=== PATIENT | female | born 1960 | race Caucasian/White ===

== ENCOUNTER → 2016-12-06 | Outpatient (CLI) | payer OTHER ==
--- NOTE | 2016-12-13 17:55 | MA ---
Screening Digital Mammogram With iCAD Analysis Clinical Indications: Routine screening. The patient has had right breast cancer treated with lumpect sixto. Technique: Standard cephalocaudal projections are obtained. Digital breast tomosynthesis was performe d in the MLO projection with reconstruction at 1.0 mm slice thickness and composite MLO views reconst ructed. A skin marker is placed on lumpectomy scar in the outer posterior right breast. This examinat ion is processed by the iCAD computer aided detection system. Comparison: October 2013, March 2013. Breast density: Type C: Heterogeneously dense. Findings: CAD was reviewed. Architectural change and dystrophic calcifications are noted at the lumpe ctomy site in the upper outer posterior right breast. No masses, suspicious calcifications or seconda ry signs of malignancy are seen. There has been no significant change in the appearance of either edil ast. Impression: Benign post lumpectomy mammography, BI-RADS 2. Recommendation: Routine mammographic screening in one year as long as physical examination is negativ e in this patient with heterogeneously dense breast parenchyma. [facility] will send a result letter to the patient. Negative mammography should not preclude additional workup of a clinically suspicious finding. The patient's information is entered into a reminder system with a target due date for her next mammo gram.
== END ==
LOC: FIMAGING 11:32
DX: Z12.31 Encounter for screening mammogram for malignant neoplasm of breast (principal); Z85.3 Personal history of malignant neoplasm of breast
CPT/HCPCS: G0202

== ENCOUNTER → 2017-12-19 | Outpatient (CLI) | payer OTHER | LOC: FIMAGING 12:38 | PROVIDERS: ATTEND Family Medicine | DX: Z12.31 Encounter for screening mammogram for malignant neoplasm of breast (principal); Z85.3 Personal history of malignant neoplasm of breast ==

== ENCOUNTER → 2017-12-29 | Outpatient (CLI) | payer OTHER | LOC: FIMAGING 13:26 | PROVIDERS: ATTEND Family Medicine | DX: R92.8 Other abnormal and inconclusive findings on diagnostic imaging of breast (principal) ==

== ENCOUNTER → 2018-01-15 | Outpatient (CLI) | payer OTHER ==
[~2018-01-15] MED LIST: BUPIVACAINE 0.5% 10 ML SDV ONE; LIDOCAINE 1% 300 MG/30 ML SDV ONE; THROMBIN (BOVINE) 5,000 UNIT VIAL TP ONE
== END ==
LOC: FIMAGING 07:44
PROVIDERS: ATTEND Family Medicine
PROC: 0HBT3ZX Excision of Right Breast, Percutaneous Approach, Diagnostic (ICD-10-PCS; principal; 2018-01-15)
DX: C50.411 Malignant neoplasm of upper-outer quadrant of right female breast (principal)

== ENCOUNTER 2018-02-23 08:10 | Observation (INO) | payer OTHER ==
[2018-02-23] MEDS ORDERED: LR 1,000 ML IV ONE (08:22)
--- NOTE | 2018-02-23 10:00 | PDANEPAE ---
ANE History of Present Illness 57 year old female for bilateral mastectomy with reconstruction. ANE Past Medical History - Cardiovascular History Hx Hypertension: No Hx Arrhythmias: No Hx Chest Pain: No Hx Coronary Artery / Peripheral Vascular Disease: No Hx CHF / Valvular Disease: No Hx Palpitations: No - Pulmonary History Hx COPD: No Hx Asthma/Reactive Airway Disease: No Hx Recent Upper Respiratory Infection: No Hx Oxygen in Use at Home: No Hx Sleep Apnea: No Sleep Apnea Screening Result - Last Documented: Negative - Neurologic History Hx Cerebrovascular Accident: No Hx Seizures: No Hx Dementia: No Neurologic History Comment: migraine H/A's. 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 - Endocrine History Hx Diabetes: No Hypothyroid: No Hyperthyroid: No Obesity: no - Renal History Hx Renal Disorders: No - Liver History Hx Hepatic Disorders: No - Neurological & Psychiatric Hx Hx Neurological and Psychiatric Disorders: Yes Neurological / Psychiatric History Comment: clinical depression; H/A posterior C3,4,5 neck pain - Cancer History Hx Cancer: Yes Cancer History Comment: R breast - Congenital Disorder History Hx Congenital Disorders: No - GI History Hx Gastrointestinal Disorders: Yes Gastrointestinal History Comment: lansoprazole protects stomach from Venlafaxine - Other Health History Other Health History: none - Chronic Pain History Chronic Pain: No - Surgical History Prior Surgeries: R breast surgery. R breast lumpectomies x2. pilonidal cyst excision. wisdom teeth extraction (oral surgeon's office) ANE Review of Systems Review of Systems: - Exercise capacity Exercise capacity: >=4 METS METS (RN): 4 METS ANE Patient History - Allergies Allergies/Adverse Reactions: amoxicillin Allergy (Verified 02/21/18 15:34) Rash ciprofloxacin [From Cipro] Allergy (Verified 02/21/18 15:34) "kidney failure" Sulfa (Sulfonamide Antibiotics) Allergy (Verified 02/21/18 15:34) Rash - Home Medications Home medications: home medication list seen and reviewed Home Medications: RX: Vitamin B Complex [B Complex] 1 each PO DAILY 10/29/16 [Last Taken 02/23/18] Brexpiprazole [Rexulti 1 MG (*)] 1 mg PO DAILY 02/19/18 [Last Taken 02/23/18] Eszopiclone [Lunesta] 2 mg PO HS 02/19/18 [Last Taken 02/23/18] Naproxen Sodium [Aleve 220 MG (*)] 220 mg PO DAILY PRN 02/19/18 [Last Taken 10:00] SUMAtriptan [Imitrex 50 MG (*)] 100 mg PO DAILY PRN 02/19/18 [Last Taken Unknown ] Venlafaxine Xr [Effexor Xr 75MG (*)] 225 mg PO DAILY 02/19/18 [Last Taken ] - NPO status NPO Status: no food or drink >8 hours NPO Since - Liquids (Date): 02/22/18 NPO Since - Liquids (Time): 23:30 NPO Since - Solids (Date): 02/22/18 NPO Since - Solids (Time): 19:30 - Anes Hx Anes Hx: no prior problems - Smoking Hx Smoking Status: Never smoked Marijuana use: No - Alcohol Use Alcohol Use: Occasionally - Family Anes Hx Family Anes Hx: neg - N/A ANE Labs/Vital Signs - Vital Signs Vital Signs: reviewed preoperatively; see RN documention for details Blood Pressure: 139/101 Heart Rate: 109 Respiratory Rate: 18 O2 Sat (%): 90 Height: 167.64 cm Weight: 81.647 kg ANE Physical Exam - Airway Mallampati Score: Class 3 Mouth exam: small mouth opening Mouth image: 1 - veneers / capped - Pulmonary Pulmonary: no respiratory distress - Cardiovascular Cardiovascular: regular rate and rhythym ANE Anesthesia Plan Anesthesia Plan: general endotracheal anesthesia Total IV Anesthesia: No
[2018-02-23] MEDS ORDERED: BACITRACIN ZINC 14.2 GM OINTTUBE TP ONE (10:03)
[2018-02-23] MEDS ORDERED: GENTAMICIN SULFATE 80 MG/2 ML VIAL ONE (10:03)
[2018-02-23] MEDS ORDERED: BUPIVACAINE 0.25% 30 ML SDV ONE (10:03)
[2018-02-23] MEDS ORDERED: BACITRACIN 50,000 UNITS/10 ML SYR IRR ONE (10:04)
[2018-02-23] MEDS ORDERED: ceFAZolin 2 GM/SWFI 2 GM/20 ML SYR IVP ONE (10:04)
[2018-02-23] MEDS ORDERED: ceFAZolin 1 GM/5 ML SYR ONE (10:04)
--- NOTE | 2018-02-23 10:04 | PDHPUP ---
History & Physical Update H&P update statement: This history and physical update is based on an assessment of the patient which was completed after admission or registration (within 24 hours), but prior to the surgery/procedure. H&P update: H&P reviewed & patient examined, no change in patient's condition since H&P completed
[2018-02-23] MEDS ORDERED: MIDAZOLAM 2 MG/2 ML VIAL IVP ONE (10:13)
[2018-02-23] MEDS ORDERED: fentaNYL 100 MCG/2 ML INJ ONE ×3 (10:30→14:40)
[2018-02-23] MEDS ORDERED: PROPOFOL/EMULSION 500 MG/50 ML BOTTLE IV ONE ×2 (10:30→12:28)
[2018-02-23] MEDS ORDERED: SUGAMMADEX SODIUM 200 MG/2 ML VIAL IVP ONE (10:33)
[2018-02-23] MEDS ORDERED: DEXAMETHASONE 4 MG/ML VIAL ONE (10:33)
[2018-02-23] MEDS ORDERED: ONDANSETRON 4 MG/2 ML VIAL ONE (10:33)
[2018-02-23] MEDS ORDERED: ROCURONIUM 50 MG/5 ML VIAL ONE (10:43)
[2018-02-23] MEDS ORDERED: LIDOCAINE 2% 5 ML SDV ONE (10:43)
[2018-02-23] MEDS ORDERED: KETOROLAC 30 MG/1 ML SDV ONE (11:42)
[2018-02-23] MEDS ORDERED: PROMETHAZINE HCL 25 MG/ML INJ IVP PRN ×2 (11:59→13:15)
[2018-02-23] MEDS ORDERED: TEMAZEPAM 15 MG CAP PO PRN (11:59)
[2018-02-23] MEDS ORDERED: ONDANSETRON 4 MG/2 ML VIAL IVP PRN ×2 (11:59→13:15)
[2018-02-23] MEDS ORDERED: PHENYLEPHRINE HCL 100 MCG/ML SYR ONE (12:07)
[2018-02-23] MEDS ORDERED: NALOXONE HCL 0.4 MG/ML INJ IVP PRN (13:15)
[2018-02-23] MEDS ORDERED: LR 500 ML IV PRN (13:15)
[2018-02-23] MEDS ORDERED: PHENYLEPHRINE HCL 100 MCG/ML SYR IVP PRN (13:15)
[2018-02-23] MEDS ORDERED: epHEDrine SULFATE 10 MG/ML SYR IVP PRN (13:15)
[2018-02-23] MEDS ORDERED: HYDROmorphone HCL/NS 0.5 MG/ML SYR IVP PRN ×2 (13:15→17:23)
[2018-02-23] MEDS ORDERED: ceFAZolin 2 GM/DEXTROSE 100 ML IV SCH (14:00)
[2018-02-23] MEDS: fentaNYL 100 MCG/2 ML INJ IVP PRN ×3 (14:42→14:58)
[2018-02-23] MEDS ORDERED: HYDROCODONE/APAP 5/325 TAB ONE (14:57)
--- NOTE | 2018-02-23 14:57 | GOP ---
[f rep st] OPERATIVE REPORT DATE OF OPERATION: 02/23/2018 SURGEON: Delmi Ellison Jr., MD BOILER SETTER: Darrius Lobo SA, by surgeon request (skilled surgical tech was necessary due to th e technical complexity of the case and desire to minimize patient anesthesia time). ANESTHESIA: General inhalational. PREOPERATIVE DIAGNOSIS: Recurrent right breast cancer. POSTOPERATIVE DIAGNOSIS: Recurrent right breast cancer. PROCEDURE PERFORMED: Immediate bilateral breast reconstruction utilizing tissue expanders and human dermal allograft FINDINGS: ESTIMATED BLOOD LOSS: During reconstruction was 15 mL. DESCRIPTION OF PROCEDURE: She was taken to the operating room. After adequate inhalational general anesthesia was induced, she underwent a bilateral mastectomy by Dr. Elias Downey. This was an uncompl icated procedure and at the end of her procedure, the patient was redraped with fresh towels, fresh i nstrumentation, electrocautery, and suction was utilized. The procedure began by rinsing the pockets multiple times with normal saline to remove any blood and bits of tissue remaining from the mastecto my. An Qriouslyan 133 FX, 550 mL tissue organ builder had been previously prepared by filling with 400 mL of air , rinsing in triple antibiotic saline, and wrapping the tissue expanders completely with AlloDerm odalys llular dermis graft. The AlloDerm had been previously rinsed and soaked in triple antibiotic saline and trimmed to precisely fit the contour of the organ builder. The organ builder was then placed into the appr opriate pocket bilaterally and sutured into the correct position on the chest wall using 2-0 PDS sutu re. A small right internal Dom flap was tacked superiorly to provide additional soft tissue coverag e, given the size discrepancy of the breast to begin with from the previous surgery. The superior sk in flap was then tacked down to the anterior aspect of the AlloDerm using 2-0 Vicryl suture. 15 round SHARLENE drains were placed along with 15 mL of 0.25% plain Marcaine. The lateral mastectomy pock et was closed using 2-0 Vicryl suture. The pockets were rinsed multiple times with triple antibiotic saline solution. Hemostasis, again, assured. The skin edges were then closed using everting deep d ermal 3-0 Monocryl suture and further everted using surgical lacey. I elected to remove 50 mL of a ir from the right tissue organ builder to minimize tension on the incision. The drains were placed to bul b suction. She had bacitracin, Xeroform, 4 x 4s applied to her incision. She had a compressive bra placed in the operating room. She was extubated in the OR, taken to recovery room, awake, in stable condition. SURGEON: Delmi Ellison MD. TISSUE EXPANDERS UTILIZED: Allergan 133FX, 550 mL tissue expanders. The left was filled to 400. Th e right was filled to 350 mL with air. DRAIN: 2 SHARLENE drains were placed. COMPLICATIONS: No complications. INDICATIONS FOR OPERATION: Melody is a 57-year-old white female who underwent a right-sided lumpectom y with radiation therapy many years ago for breast cancer. She developed recurrent cancer in the rig ht breast and elected to undergo a completion right mastectomy with contralateral prophylactic left m astectomy. She was deemed a good candidate for tissue organ builder reconstruction. Was seen in the oper ating room for that purpose. Clinical course: After risks and benefits of procedure explained, highl ighting bleeding, infection, need for tissue organ builder removal, damage to vessels or nerves or underly ing muscle, contour irregularities, and need for additional procedures. Formal operative consent was obtained. /[id number]/MODL
[2018-02-23] MEDS: HYDROCODONE/APAP 5/325 TAB PO PRN ×2 (15:00→23:02)
--- NOTE | 2018-02-23 15:07 | POSTANESTH ---
Post Anesthetic Evaluation Cardiovascular Status: Normal, Stable, Similar to Pre-Op Cond Respiratory Status: Normal, Stable, Similar to Pre-op Cond. Level of Consciousness/Mental Status: Can Participate in Eval, Alert and Oriented Pain Control: Adequate, Prn Tx Ordered Nausea/Vomiting Control: Adequate, Prn Tx Ordered Complications Possibly Related to Anesthesia: None Noted
[2018-02-23] MEDS: ALPRAZolam 0.25 MG TAB PO SCH ×2 (16:52→23:02)
[2018-02-23] MEDS: KETOROLAC 15 MG/1 ML SDV IVP SCH (18:30)
--- NOTE | 2018-02-23 18:38 | GOP ---
[f rep st] OPERATIVE REPORT DATE OF OPERATION: 02/23/2018 SURGEON: Elias Downey MD PLASTIC SURGEON: Delmi Ellison MD TRACKMOBILE OPERATOR: Tamika Beavers PA-C ANESTHESIA: General ANESTHESIOLOGIST: Gene Rizo MD PREOPERATIVE DIAGNOSIS: 1. Right breast carcinoma. 2. Personal history of right breast carcinoma. POSTOPERATIVE DIAGNOSIS: 1. Right breast carcinoma. 2. Personal history of right breast carcinoma. PROCEDURE PERFORMED: Bilateral simple mastectomy with right axillary sentinel node biopsy, with immediate tissue architecture technician reconstruction. FINDINGS: See below. INDICATIONS: 57-year-old female with a remote history of right breast DCIS. She underwent a prior right lumpectomy with partial breast irradiation. She has developed a new invasive ductal carcinoma within the ipsilateral breast. Preoperative imaging shows no other multifocal or contralateral lesions. She is undergoing a right mastectomy with axillary sentinel node sampling, as well as prophylactic left mastectomy at this time. Risks and benefits were explained of bleeding, infection, tumor recurrence, need for additional postoperative therapy, skin flap necrosis, arm edema, nerve injury, failure to identify sentinel lymph node, as well as others. All questions were entertained. She desires to proceed. A surgical aides teacher is standard and necessary and customary for the safe performance of this procedure. DESCRIPTION OF PROCEDURE: General anesthesia was induced upon returning from right breast lymphoscintigraphy. Bilateral breasts were elliptically incised, incorporating the nipple-areolar complexes. The right breast had 2 prior areas of treatment which were tethered to the skin. Overlying skin was completely excised overlying these areas of interest. The skin flaps were created to the level of the clavicles, sternum, inframammary fold as well as latissimus dorsi muscle laterally. Bilateral breasts were peeled from medial to lateral, incorporating the pectoralis major fascia. The right axilla was opened. There was no suspicious axillary adenopathy. Multiple small peppered lymph nodes were identified and excised. The sentinel uptake was noted to be marginal throughout; all areas of subtle uptake were included with the specimen sampling measuring approximately 40-50 units on the gamma counter. Upon completion, the background activity was all negligible. Satisfactory hemostasis was assured throughout the right axilla as well as the bilateral breast cavities. Care of the case was turned to Dr. Ellison for tissue architecture technician placement and wound closure. /[id number]/MODL MTDD
[2018-02-23] MEDS: ceFAZolin 2 GM/SWFI 2 GM/20 ML SYR IVP SCH (18:49)
[2018-02-24] MEDS: KETOROLAC 15 MG/1 ML SDV IVP SCH ×2 (00:07→06:07)
[2018-02-24] MEDS: ceFAZolin 2 GM/SWFI 2 GM/20 ML SYR IVP SCH ×2 (01:51→08:56)
[2018-02-24] MEDS: HYDROCODONE/APAP 5/325 TAB PO PRN ×2 (04:45→08:53)
--- NOTE | 2018-02-24 08:21 | SOAPPROG ---
SOAP Progress Note Assessment/Plan: Assessment:no overnight complaints. pain well controlled. afebrile. comfortable. flaps pink. drains serosang. doing very well. home later today. postop hypoxia - anticipate improvement with ambulation/pulm toilet. f/u as scheduled - has rx and instructions already. Plan: 02/24/18 08:18 Objective: Vital Signs Temp Pulse Resp BP Pulse Ox 36.8 C 92 16 139/68 H 94 02/24/18 04:00 02/24/18 04:00 02/24/18 04:00 02/24/18 04:00 02/24/18 04:00 02/23/18 02/24/18 02/25/18 05:59 05:59 05:59 Intake Total 3301 Output Total 650 380 Balance 2651 -380 ICD10 Worksheet Patient Problems: Problems Problem Status Onset Alcoholic intoxication Acute Pneumonia Acute Suicidal ideation Acute
[2018-02-24] MEDS: ALPRAZolam 0.25 MG TAB PO SCH (08:41)
[2018-02-24] MEDS ORDERED: PANTOPRAZOLE SODIUM 40 MG TAB PO SCH (09:00)
[2018-02-24] MEDS ORDERED: VENLAFAXINE XR 75 MG CAP PO SCH (09:00)
[2018-02-24] MEDS ORDERED: LANSOPRAZOLE SUSP 3 MG/ML UDSYR (Peds) PO SCH (09:00)
[2018-02-24 11:07] VITALS: BP 138/76
== END 2018-02-24 12:06 | disposition home or self-care (01) ==
LOC: F3N 08:10 → INTOOBSV 08:10 → F1N 15:12
PROVIDERS: ADMIT Surgery; ATTEND Surgery
DX: C50.611 Malignant neoplasm of axillary tail of right female breast (principal); F41.8 Other specified anxiety disorders; G43.909 Migraine, unspecified, not intractable, without status migrainosus; Z17.0 Estrogen receptor positive status [ER+]
CPT/HCPCS: A9520; G0378; J0690; J1100; J1580; J1885; J2250; J2370; J2405; J2704; J3010; Q4116

== ENCOUNTER → 2018-05-14 | Outpatient (CLI) | payer OTHER | LOC: FIMAGING 13:52 | PROVIDERS: ATTEND Internal Medicine Hematology & Oncology | DX: Z13.820 Encounter for screening for osteoporosis (principal); M85.89 Other specified disorders of bone density and structure, multiple sites; Z78.0 Asymptomatic menopausal state ==

== ENCOUNTER 2018-09-17 12:37 | Day surgery (SDC) | payer OTHER ==
[2018-09-17] MEDS ORDERED: MIDAZOLAM 2 MG/2 ML VIAL IVP ONE (14:06)
--- NOTE | 2018-09-17 14:06 | PDANEPAE ---
ANE Past Medical History - Cardiovascular History Hx Hypertension: No Hx Arrhythmias: No Hx Chest Pain: No Hx Coronary Artery / Peripheral Vascular Disease: No Hx CHF / Valvular Disease: No Hx Palpitations: No - Pulmonary History Hx COPD: No Hx Asthma/Reactive Airway Disease: No Hx Recent Upper Respiratory Infection: No Hx Oxygen in Use at Home: No Hx Sleep Apnea: No Sleep Apnea Screening Result - Last Documented: Negative - Neurologic History Hx Cerebrovascular Accident: No Hx Seizures: No Hx Dementia: No Neurologic History Comment: migraine H/A's. 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 - Endocrine History Hx Diabetes: No - Renal History Hx Renal Disorders: No - Liver History Hx Hepatic Disorders: No - Neurological & Psychiatric Hx Hx Neurological and Psychiatric Disorders: Yes Neurological / Psychiatric History Comment: clinical depression - Cancer History Hx Cancer: Yes Cancer History Comment: R breast - Congenital Disorder History Hx Congenital Disorders: No - GI History Hx Gastrointestinal Disorders: Yes Gastrointestinal History Comment: lansoprazole protects stomach from Venlafaxine - Other Health History Other Health History: none - Chronic Pain History Chronic Pain: No - Surgical History Prior Surgeries: 05/2018 breast exchange at surgery center. R breast surgery. R breast lumpectomies x2. pilonidal cyst excision. wisdom teeth extraction ( oral surgeon's office). bilat mastectomy ANE Review of Systems Review of Systems: - Exercise capacity METS (RN): 4 METS ANE Patient History - Allergies Allergies/Adverse Reactions: amoxicillin Allergy (Verified 09/11/18 17:13) Rash cephalexin [From Keflex] Allergy (Verified 09/11/18 17:13) Rash ciprofloxacin [From Cipro] Allergy (Verified 09/11/18 17:13) "kidney failure" Sulfa (Sulfonamide Antibiotics) Allergy (Verified 09/11/18 17:13) Rash - Home Medications Home Medications: Brexpiprazole [Rexulti 1 MG (*)] 02/19/18 [Last Taken 09/16/18] Eszopiclone [Lunesta] 02/19/18 [Last Taken 09/16/18] SUMAtriptan [Imitrex 50 MG (*)] PRN 02/19/18 [Last Taken 03/21/18] Venlafaxine Xr [Effexor Xr 75MG (*)] 02/19/18 [Last Taken 09/16/18] Lansoprazole [Prevacid] 05/30/18 [Last Taken 09/16/18] Herbals/Supplements -Info Only 09/11/18 [Last Taken 09/11/18] Tamoxifen Citrate 09/11/18 [Last Taken 09/16/18] - NPO status NPO Since - Liquids (Date): 09/17/18 NPO Since - Liquids (Time): 11:00 NPO Since - Solids (Date): 09/16/18 NPO Since - Solids (Time): 19:00 - Smoking Hx Smoking Status: Former smoker - Family Anes Hx Family Hx Anesthesia Complications: none ANE Labs/Vital Signs - Vital Signs Blood Pressure: 153/99 Heart Rate: 102 Respiratory Rate: 20 O2 Sat (%): 95 Height: 167.64 cm Weight: 79.379 kg ANE Physical Exam - Airway Neck exam: FROM Mallampati Score: Class 2 Mouth exam: normal dental/mouth exam - Pulmonary Pulmonary: no respiratory distress - Cardiovascular Cardiovascular: regular rate and rhythym - ASA Status ASA Status: II ANE Anesthesia Plan Total IV Anesthesia: Yes
--- NOTE | 2018-09-17 14:07 | PDGENHP ---
History & Physical History of Present Illness: 58 year old female presents for evaluation of a gastric subepithelial lesion found on EGD on 07/30/18. Pertinent Past, Social, Family History: PMHx; breast ca, osteoporosis, iron def anemi. PSurgHx; b/l mastect. Relevant Physical Exam: HEENT: anicteric. CV: rrr + s1s2. Lungs: CTAB. Abd: soft, nt, + bs. No g/r Cardiorespiratory Assessment: ASA 2
[2018-09-17] MEDS ORDERED: INDOMETHACIN 50 MG SUPP PR PRN (14:08)
[2018-09-17] MEDS ORDERED: fentaNYL 100 MCG/2 ML INJ ONE (14:09)
[2018-09-17] MEDS ORDERED: PROPOFOL/EMULSION 500 MG/50 ML BOTTLE IV ONE ×2 (14:09→14:46)
[2018-09-17] MEDS ORDERED: NS 500 ML IV SCH (14:15)
[2018-09-17] MEDS ORDERED: MIDAZOLAM 2 MG/2 ML VIAL ONE (14:17)
[2018-09-17] MEDS ORDERED: fentaNYL 100 MCG/2 ML INJ IVP PRN (14:29)
[2018-09-17] MEDS ORDERED: ONDANSETRON 4 MG/2 ML VIAL IVP PRN (14:29)
[2018-09-17] MEDS ORDERED: ALBUTEROL 3 ML DEYVIAL IH PRN (14:29)
[2018-09-17] MEDS ORDERED: NALOXONE HCL 0.4 MG/ML INJ IVP PRN (14:29)
[2018-09-17] MEDS ORDERED: LABETALOL HCL 5 MG/ML 20 ML MDV ONE (14:37)
--- NOTE | 2018-09-17 15:24 | POSTANESTH ---
Post Anesthetic Evaluation Cardiovascular Status: Similar to Pre-Op Cond Respiratory Status: Similar to Pre-op Cond. Level of Consciousness/Mental Status: Mildly Sleepy, Arousable Pain Control: Adequate, Prn Tx Ordered Nausea/Vomiting Control: Adequate, Prn Tx Ordered Complications Possibly Related to Anesthesia: None Noted
--- NOTE | 2018-09-17 15:42 | GIREPORT ---
[facility] Surgical Services - Endoscopy Department Patient Name: Melody Lacey Procedure Date: 09/17/2018 2:22 PM Patient Type: Outpatient Attending / ER Physician: Adriel Pickett MD Procedure: Upper EUS Indications: Submucosal tumor versus extrinsic mass found on endoscopy Patient Profile: 58 year old female presents for evaluation of a gastric subepithelial l esion Providers: Adriel Pickett MD Medicines: Monitored Anesthesia Care Complications: No immediate complications. Estimated blood loss: Minimal. Description of Procedure: After obtaining informed consent, the endoscope was passed under direct vision. Throughout the procedure, the patient's blood pressure, pulse, and oxygen saturations were monitored continuously. The Endosonoscope was introduced through the mouth, and advanced to the second part of duoden um. The Endoscope was introduced through the mouth, and advanced to the sec ond part of duodenum. The upper EUS was accomplished without difficulty. Th e esophagus, stomach, and duodenum were visualized endosonographically. T he patient tolerated the procedure well. Findings: Endoscopic Finding : The Z-line was irregular with tongues of columnar appearing epithelium extending about 1.5cms into the esophagus. Short segment Barretts? Biop sies were taken with a cold forceps for histology. The GE junction was locat ed at 33cms from the gums. A single large subepithelial lesion was found in the gastric body, ante rior wall, lesser curvature. It was located at 43cms from the gums. 10cc of Tiarra Ink was injected around the lesion. See EUS section for further characterization. A hiatal hernia was present. Multiple small sessile polyps were found on the greater curvature of th e stomach. Biopsies were taken with a cold forceps for histology. Diffuse moderately erythematous mucosa was found in the entire examined stomach. Biopsies were taken with a cold forceps for histology. The examined duodenum was normal. This was biopsied on previous EGD. A single large subepithelial lesion was noted. was found in the gastric body. It was hypoechoic and measured 4 x 2.5cms. Could not determine wh at wall layer it originated from. Fine needle aspiration for cytology was performed. Color Doppler imaging was utilized prior to needle puncture to confirm a lack of significant vascular structures within the needle pat h. One pass was made with the 25 gauge needle using a transgastric approac h. A stylet was used. A supervisor metal placing was present and performed a preliminary cytologic examination. Fine needle biopsy was performed. Color Doppler imaging was utilized prior to needle puncture to confirm a lack of significant vascular structures within the needle path. Three passes we re made with the 22 gauge ultrasound biopsy needle using a transgastric approach. A visible core of tissue was obtained. Touch preps were perfo rmed. Endosonographic Finding : There was no sign of significant endosonographic abnormality in the com mon bile duct. The maximum diameter of the duct was 3 mm. There was no sign of significant endosonographic abnormality in the visualized portion of the liver. No masses were identified. No lymphadenopathy seen. Pancreatic parenchymal abnormalities were noted in the entire pancreas. These consisted of hyperechoic foci. The pancreatic duct had a prominently branched endosonographic appearan ce and had hyperechoic rascon in the entire pancreas. Estimated Blood Loss: Estimated blood loss was minimal. Post Op Diagnosis: - Z-line irregular. Biopsied. Barretts? - Hiatal hernia. - Multiple gastric polyps. Biopsied. - Erythematous mucosa in the stomach. Biopsied. - Normal examined duodenum. - A single papule (nodule) found in the stomach. Fine needle aspiration performed. Fine needle biopsy performed. Tiarra Ink injected around the lesion. - There was no sign of significant pathology in the common bile duct. - There was no evidence of significant pathology in the visualized port ion of the liver. - Pancreatic parenchymal abnormalities consisting of hyperechoic foci w ere noted in the entire pancreas. - The pancreatic duct had a prominently branched endosonographic appear ance and had hyperechoic rascon in the entire pancreas. - Etiology? GIST vs. leiomyoma versus other? Await FNA and FNB results. Recommendation: - Discharge patient to home (with escort). - Advance diet as tolerated. - Continue present medications. - Await cytology results and await path results. - More recommendations once FNA and FNB results are back. - Thank you for allowing me to participate in the care of your patient. Attending Participation: I personally performed the entire procedure. Adriel Pickett MD Adriel Pickett MD 09/17/2018 3:41:52 PM This report has been signed electronicallyAdriel Pickett MD Number of Addenda: 0 Note Initiated On: 09/17/2018 2:22 PM [email or web address]
[2018-09-17 17:38] VITALS: BP 142/88
== END 2018-09-17 17:38 | disposition home or self-care (01) ==
LOC: FSGY 12:37
PROVIDERS: ATTEND Internal Medicine Gastroenterology
DX: D13.1 Benign neoplasm of stomach (principal); K29.50 Unspecified chronic gastritis without bleeding; K31.89 Other diseases of stomach and duodenum; K44.9 Diaphragmatic hernia without obstruction or gangrene
CPT/HCPCS: J2250; J2704; J3010

== ENCOUNTER 2018-10-30 05:37 | Inpatient (IN) | payer OTHER ==
[2018-10-30] MEDS ORDERED: LR 1,000 ML IV ONE (06:01)
[2018-10-30] MEDS ORDERED: BUPIVACAINE 0.5% 30 ML SDV ONE (06:55)
[2018-10-30] MEDS ORDERED: CLINDAMYCIN 900 MG/DEXTROSE 50 ML IV ONE (06:56)
[2018-10-30 06:58] LABS: PLATELET COUNT 239 10^3/uL (150-400)
[2018-10-30] MEDS ORDERED: MIDAZOLAM 2 MG/2 ML VIAL IVP ONE (07:00)
--- NOTE | 2018-10-30 07:01 | PDANEPAE ---
ANE Past Medical History - Cardiovascular History Hx Hypertension: No Hx Arrhythmias: No Hx Chest Pain: No Hx Coronary Artery / Peripheral Vascular Disease: No Hx CHF / Valvular Disease: No Hx Palpitations: No - Pulmonary History Hx COPD: No Hx Asthma/Reactive Airway Disease: No Hx Recent Upper Respiratory Infection: No Hx Oxygen in Use at Home: No Hx Sleep Apnea: No Sleep Apnea Screening Result - Last Documented: Negative - Neurologic History Hx Cerebrovascular Accident: No Hx Seizures: No Hx Dementia: No Neurologic History Comment: migraine H/A's. 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 - Endocrine History Hx Diabetes: No Endocrine History Comment: pre-diabetic, no meds - Renal History Hx Renal Disorders: No - Liver History Hx Hepatic Disorders: No - Neurological & Psychiatric Hx Hx Neurological and Psychiatric Disorders: Yes Neurological / Psychiatric History Comment: clinical depression; H/A posterior C3,4,5 neck pain - Cancer History Hx Cancer: Yes Cancer History Comment: R breast - Congenital Disorder History Hx Congenital Disorders: No - GI History Hx Gastrointestinal Disorders: Yes Gastrointestinal History Comment: lansoprazole protects stomach from Venlafaxine - Other Health History Other Health History: post menapausal - Chronic Pain History Chronic Pain: No - Surgical History Prior Surgeries: R breast surgery. R breast lumpectomies x2. pilonidal cyst excision. wisdom teeth extraction (oral surgeon's office). bilat mastectomy. EUS 09/17/18 ANE Review of Systems Review of Systems: - Exercise capacity METS (RN): 4 METS ANE Patient History - Allergies Allergies/Adverse Reactions: amoxicillin Allergy (Verified 09/11/18 17:13) Rash cephalexin [From Keflex] Allergy (Verified 09/11/18 17:13) Rash ciprofloxacin [From Cipro] Allergy (Verified 09/11/18 17:13) "kidney failure" Sulfa (Sulfonamide Antibiotics) Allergy (Verified 09/11/18 17:13) Rash - Home Medications Home Medications: Brexpiprazole [Rexulti 1 MG (*)] 1 mg PO DAILY 02/19/18 [Last Taken 10/29/18] SUMAtriptan [Imitrex 50 MG (*)] 100 mg PO DAILY PRN 02/19/18 [Last Taken 2 Weeks Ago ~10/16/18] Venlafaxine Xr [Effexor Xr 75MG (*)] 225 mg PO DAILY 02/19/18 [Last Taken ] Lansoprazole [Prevacid] 30 mg PO DAILY 05/30/18 [Last Taken 10/29/18] Tamoxifen Citrate 100 mg PO DAILY #0 09/11/18 [Last Taken 10/29/18] Cholecalciferol Vit D3 [Vitamin D3 (*)] 1,000 units PO DAILY 10/24/18 [Last Taken 1 Week Ago ~10/23/18] Multivitamins [Multivitamin (*)] 1 each PO DAILY 10/24/18 [Last Taken 1 Week Ago ~10/23/18] Vitamin B Complex [Vitamin B Complex (OTC)] 1 each PO DAILY 10/24/18 [Last Taken 1 Day Ago ~10/29/18] - NPO status NPO Since - Liquids (Date): 10/29/18 NPO Since - Liquids (Time): 23:45 NPO Since - Solids (Date): 10/29/18 NPO Since - Solids (Time): 17:00 - Smoking Hx Smoking Status: Former smoker - Family Anes Hx Family Hx Anesthesia Complications: none ANE Labs/Vital Signs - Labs Result Diagrams: 10/30/18 06:15 - Vital Signs Blood Pressure: 146/104 Heart Rate: 104 Respiratory Rate: 14 O2 Sat (%): 86 Height: 167.64 cm Weight: 80.739 kg ANE Physical Exam - Airway Neck exam: FROM Mallampati Score: Class 2 - Pulmonary Pulmonary: no respiratory distress - Cardiovascular Cardiovascular: regular rate and rhythym - ASA Status ASA Status: II ANE Anesthesia Plan Anesthesia Plan: general endotracheal anesthesia
[2018-10-30] MEDS ORDERED: METOCLOPRAMIDE 10 MG/2 ML VIAL ONE (07:05)
[2018-10-30] MEDS ORDERED: PROPOFOL/EMULSION 500 MG/50 ML BOTTLE IV ONE ×3 (07:05→08:34)
[2018-10-30] MEDS ORDERED: RANITIDINE 50 MG/2 ML VIAL ONE (07:05)
[2018-10-30] MEDS ORDERED: DEXAMETHASONE 4 MG/ML VIAL ONE ×2 (07:05)
[2018-10-30] MEDS ORDERED: LIDOCAINE 2% 100 MG/5 ML SYR ONE (07:06)
[2018-10-30] MEDS ORDERED: ROCURONIUM 100 MG/10 ML VIAL ONE (07:06)
[2018-10-30] MEDS ORDERED: HYDROCODONE/APAP 5/325 TAB PO PRN (07:33)
[2018-10-30] MEDS ORDERED: ONDANSETRON 4 MG/2 ML VIAL IVP PRN ×2 (07:33→09:02)
[2018-10-30] MEDS ORDERED: ACETAMINOPHEN 325 MG TAB PO PRN (07:33)
--- NOTE | 2018-10-30 07:33 | POSTOPPROG ---
Post Op Note Date of Operation: 10/30/18 Surgeon: Elias Downey Turkey Pinner: Li Beavers Anesthesiologist: Art Yanes Anesthesia: GET(General Endotracheal) Pre-op Diagnosis: Gastric mass Post-op Diagnosis: Same Procedure: Lap partial gastrectomy Inf/Abcess present in the surg proc area at time of surgery?: No EBL: 50-100 Specimen(s): lesser curve mass
[2018-10-30] MEDS ORDERED: SUMAtriptan 50 MG TAB PO PRN (07:35)
[2018-10-30] MEDS ORDERED: LABETALOL HCL 5 MG/ML 20 ML MDV ONE (07:59)
--- NOTE | 2018-10-30 08:09 | PDMN ---
Medical Necessity Medical necessity: MCG: OP: Lap partial gastrectomy AUTH# [id number] APPROVED FOR CPT 48352 DONE INT LOS 1 DAY
[2018-10-30] MEDS ORDERED: KETOROLAC 30 MG/1 ML SDV ONE (08:34)
[2018-10-30] MEDS ORDERED: SUGAMMADEX SODIUM 200 MG/2 ML VIAL IVP ONE (08:39)
[2018-10-30] MEDS ORDERED: LANSOPRAZOLE SUSP 3 MG/ML UDSYR (Peds) PO SCH (09:00)
[2018-10-30] MEDS ORDERED: ALBUTEROL 3 ML DEYVIAL IH PRN (09:02)
[2018-10-30] MEDS ORDERED: NALOXONE HCL 0.4 MG/ML INJ IVP PRN (09:02)
--- NOTE | 2018-10-30 09:50 | GOP ---
DATE OF OPERATION: 10/30/2018 SURGEON: Elias Downey MD OPERATION SUPERVISOR: Li Beavers PA-C. ANESTHESIA: General. ANESTHESIOLOGIST: Sanjay Yanes MD. PREOPERATIVE DIAGNOSIS: Gastric mass. POSTOPERATIVE DIAGNOSIS: Gastric mass. PROCEDURE PERFORMED: Laparoscopic partial gastrectomy. FINDINGS: INDICATIONS: 58-year-old female with a recent history of breast cancer and iron deficiency anemia. Upper endoscopy disclosed a lesser curvature mass. Fine-needle aspiration was suspect for a possible schwannoma. Preoperative imaging studies showed no evidence of metastatic disease. There was questionable left lateral segment hepatic adherence. She is undergoing surgical excision at this time. Risks and benefits were explained including bleeding, infection, differential diagnosis, tumor recurrence, need for additional resection, as well as alternative therapies. All questions were answered. She desired to proceed. A compounding assistant was standard and necessary and customary for the safe performance of this procedure. DESCRIPTION OF PROCEDURE: General anesthesia was induced. The abdomen was pre- injected with 0.5% Marcaine with epinephrine. A vertical supraumbilical cut- down was created. A 10 mm trocar was placed under direct visualization. 4 additional 5 mm upper abdominal ports were inserted. A liver retractor was applied to the left lateral segment of the liver. Gastric mass was easily identified completely intramural in location with associated inking along the lesser curvature. The lesser omentum was opened. The lesser omentum was taken from just above the pylorus to the gastroesophageal junction. The right jamaal of the diaphragm was identified and the stomach dissected posteriorly. A tunnel was created across toward the left jamaal, allowing for the mass to be completely elevated up in the operative field. The posterior gastric attachments were all divided with the Harmonic Scalpel. The mass was noted to be multiple centimeters away from the gastroesophageal junction. Using an endoscopic KEVIN stapler, the stomach was completely wedged out circumferentially from just above the pylorus just up to the gastroesophageal junction but not including. There was a complete pancake of soft stomach surrounding the mass in its entirety. The mass was placed in an EndoCatch pouch and brought through the umbilical port site intact. Nuisance bleeding from the inferior aspect of the staple line was controlled using a running 3-0 Vicryl suture to reinforce the lower half of the staple line. Excellent hemostasis was assured. The liver was noted to be normal and non adherent to the tumor. Visceral surfaces appeared normal, as were the surrounding omental surfaces. Trocar was removed under direct visualization. The supraumbilical midline fascia was closed with a running 0 Vicryl suture. The wounds were closed with Monocryl suture followed by Dermabond. The patient was taken to recovery uneventfully, functioning, and awake. /[id number]/MODL MTDD
[2018-10-30] MEDS ORDERED: fentaNYL 100 MCG/2 ML INJ ONE (10:44)
[2018-10-30] MEDS: fentaNYL 100 MCG/2 ML INJ IVP PRN ×3 (10:45→11:09)
[2018-10-30] MEDS: BREXPIPRAZOLE 1 MG TAB PO SCH (12:11)
[2018-10-30] MEDS: KETOROLAC 15 MG/1 ML SDV IVP SCH ×3 (12:18→23:10)
[2018-10-30] MEDS: VENLAFAXINE XR 75 MG CAP PO SCH (12:21)
[2018-10-30] MEDS: HYDROmorphONE/DILAUDID 1 MG/ML INJ IVP PRN ×3 (13:35→22:12)
[2018-10-31] MEDS: KETOROLAC 15 MG/1 ML SDV IVP SCH (06:35)
--- NOTE | 2018-10-31 07:04 | SOAPPROG ---
SOAP Progress Note Assessment/Plan: Assessment:no overnight issues. pain controlled. no nausea. afebrile. p 100' s. comfortable. abd soft. approp ecchymosis. incis clean. doing well. home today. freq small meals. f/u as scheduled. Plan: 10/31/18 07:03 Objective: Vital Signs Temp Pulse Resp BP Pulse Ox 36.6 C 105 H 18 123/88 H 90 L 10/31/18 03:29 10/31/18 03:29 10/31/18 03:29 10/31/18 03:29 10/31/18 03:29 Laboratory Results 10/30/18 06:15 10/30/18 10/31/18 11/01/18 05:59 05:59 05:59 Intake Total 1500 Output Total 20 Balance 1480 ICD10 Worksheet Patient Problems: Problems Problem Status Onset Alcoholic intoxication Acute Pneumonia Acute Suicidal ideation Acute
[2018-10-31 08:22] VITALS: BP 156/95
[2018-10-31] MEDS ORDERED: PANTOPRAZOLE SODIUM 40 MG TAB PO SCH (09:00)
[2018-10-31] MEDS: BREXPIPRAZOLE 1 MG TAB PO SCH (09:03)
--- NOTE | 2018-10-31 09:42 | GDS ---
REASON FOR ADMISSION: Gastric mass. HOSPITAL COURSE: 58-year-old female admitted with a lesser curvature gastric mass. Prior fine-needle aspiration disclosed a possible schwannoma. She underwent a laparoscopic partial gastrectomy. She had a benign postoperative course. She was discharged home on postoperative day #1 in good condition, tolerating a diet as tolerated. She was to resume all pre-hospital medications. She had prescriptions for [place] as needed for discomfort. She was instructed to continue with frequent small meals and is to advance her diet as tolerated. She will be seen in followup by Dr. Downey in 1-2 weeks. Full activity instructions were explained prior to leaving. /[id number]/MODL MTDD
[2018-10-31] MEDS: VENLAFAXINE XR 75 MG CAP PO SCH (10:43)
== END 2018-10-31 11:43 | disposition home or self-care (01) | DRG 566 ==
LOC: F3E 05:37
PROVIDERS: ADMIT Surgery; ATTEND Surgery
PROC: 0DB64ZZ Excision of Stomach, Percutaneous Endoscopic Approach (ICD-10-PCS; principal; 2018-10-30 07:15)
DX: D36.15 Benign neoplasm of peripheral nerves and autonomic nervous system of abdomen (principal); D50.9 Iron deficiency anemia, unspecified; Z85.3 Personal history of malignant neoplasm of breast
CPT/HCPCS: J1100; J1170; J1885; J2001; J2250; J2704; J2765; J2780; J3010

== ENCOUNTER → 2019-02-18 | Outpatient (CLI) | payer OTHER | LOC: MERGE 08:18 → FIMAGING 08:18 | PROVIDERS: ATTEND Surgery | DX: R11.10 Vomiting, unspecified (principal); K44.9 Diaphragmatic hernia without obstruction or gangrene; K21.9 Gastro-esophageal reflux disease without esophagitis; K31.89 Other diseases of stomach and duodenum; Z86.03 Personal history of neoplasm of uncertain behavior; Z90.49 Acquired absence of other specified parts of digestive tract ==

== ENCOUNTER → 2019-03-21 | Outpatient (CLI) | payer OTHER | LOC: FIMAGING 08:14 | PROVIDERS: ATTEND Surgery | DX: R11.10 Vomiting, unspecified (principal); Z85.028 Personal history of other malignant neoplasm of stomach | CPT/HCPCS: A9541 ==